=== PATIENT | male | born 1970 | race African-American/Black ===

== ENCOUNTER 2017-12-12 15:49 | Emergency (ER) | payer MEDICARE, OTHER ==
[2017-12-12] MEDS: SOD CHLORIDE 0.9% 1,000 ML IV (16:14)
[2017-12-12 16:24] LABS: ADD MAN DIFF? NO
[2017-12-12 16:25] LABS: WHITE BLOOD COUNT 9.4 10^3/ul (4.8-10.8)
[2017-12-12 16:25] LABS: BASOPHILS % 0.4 % (0.0-2.0); EOSINOPHILS % 0.4 % (0.0-7.0); HEMATOCRIT 35.6 % (42.0-52.0); HEMOGLOBIN 11.6 g/dl (14.0-18.0); LYMPHOCYTES # 2.8 10^3/ul (0.8-2.9); LYMPHOCYTES % 29.7 % (15.0-51.0); MEAN CORPUSCULAR HGB CONC 32.6 g/dl (32.0-37.0); MEAN CORPUSCULAR VOLUME 73.6 fl (82.0-101.0); MEAN PLATELET VOLUME 10.4 fl (7.4-10.4); MONOCYTE # 0.4 10^3/ul (0.3-0.9); MONOCYTES % 4.7 % (0.0-11.0); NEUTROPHIL # 6.1 10^3/ul (1.6-7.5); NEUTROPHILS % 64.5 % (39.0-77.0); PLATELET COUNT 185 10^3/UL (140-415); RED BLOOD COUNT 4.84 10^6/ul (4.70-6.10); RED CELL DISTRIBUTION WIDTH 15.3 % (11.5-14.5)
[2017-12-12 16:51] LABS: ANION GAP 21 (8-16); BLOOD UREA NITROGEN 8 mg/dl (7-20); CARBON DIOXIDE 19 mmol/L (21-31); CHLORIDE 111 mmol/L (97-110); CREATININE 1.21 mg/dl (0.61-1.24); GLUCOSE 102 mg/dl (70-220); POTASSIUM 3.9 mmol/L (3.5-5.1); SODIUM 147 mmol/L (135-144)
[2017-12-12 17:10] LABS: TROPONIN-I < 0.012 ng/ml (0.00-0.12)
[2017-12-12] MEDS: LORAZEPAM 2 MG INJ IM (18:23)
[2017-12-12] MEDS: HALOPERIDOL 5 MG INJ IM (18:24)
== END 2017-12-13 06:09 | disposition home or self-care (01) ==
LOC: E/R 12-13 06:09
DX: F10.929 Alcohol use, unspecified with intoxication, unspecified (principal); R55 Syncope and collapse
CPT/HCPCS: 36415; 70450; 72125; 80048; 80306; 84484; 85025; 93005; 96372; 99285-25